=== PATIENT | female | born 2000 | race Asian ===

== ENCOUNTER 2024-07-06 19:24 | Emergency (ER) | payer MEDICAID ==
[~2024-07-06] VITALS: Ht 170.2 cm; Wt 61.0 kg
[2024-07-06 19:28] VITALS: O2SAT 95
[2024-07-06 19:36] VITALS: BP 114/50; PULSE 84; RESP 16; TEMP 36.8; O2SAT 100
== END 2024-07-06 21:26 | disposition left against medical advice (07) ==
LOC: ER 19:24
DX: H53.8 Other visual disturbances (principal); Z53.21 Procedure and treatment not carried out due to patient leaving prior to being seen by health care provider

== ENCOUNTER 2024-10-05 17:59 | Emergency (ER) | payer MEDICAID, OTHER ==
[~2024-10-05] VITALS: Ht 170.2 cm; Wt 59.0 kg
[2024-10-05 18:08] VITALS: O2SAT 99
[2024-10-05] MEDS ORDERED: HYDR453.4 TP (18:46)
[2024-10-05 19:01] VITALS: BP 106/66; PULSE 72; RESP 14; TEMP 36.8; O2SAT 99
== END 2024-10-05 19:01 | disposition home or self-care (01) ==
LOC: ER 17:59
DX: L50.9 Urticaria, unspecified (principal)
CPT/HCPCS: 99282